=== PATIENT | male | born 1945 | race Caucasian/White ===

== ENCOUNTER → 2016-05-06 | Outpatient (CLI) | payer OTHER ==
--- NOTE | 2016-05-07 10:00 | MR ---
MRI lower extremity, right knee History: Right knee pain. Evaluate for meniscal tear. ICD 10 code M23.205 Comparison: None. Technique: MRI was performed of the right knee using a 3 Nay MRI system. Axial, sagittal, and coron al images were obtained with standard imaging sequences. Findings: General: Moderate suprapatellar joint effusion. Thickened suprapatellar plica. Thin Macias's cyst exte nding craniocaudal 5 cm. Ligaments and Tendons: Anterior cruciate and posterior cruciate ligaments are intact and unremarkable . Medial collateral ligament unremarkable. Minimal edema along the distal pes anserinus. Edema is see n between the iliotibial band and fibular collateral ligament. Mild abnormal signal intensity seen in the proximal fibular collateral ligament. Biceps femoris is unremarkable. Mild abnormal signal inten sity is seen in the popliteus tendon without attenuation. Complex fluid collection is seen posterior to the posterior cruciate ligament with septations indicating the complex ganglion measuring 2 x 1 cm . Menisci and Cartilage: Abnormal signal intensity seen anterior horn and body of the lateral meniscus to the superior articular surface and fraying at the free edge. Cartilage thinning is seen in the pos terior weightbearing portion of the lateral compartment. Undersurface tear posterior horn lateral men iscus at the posterior medial periphery. There is also focal area of truncation of the free edge of t he posterior horn mid aspect. Extensor Mechanism: Cartilage signal abnormality and thinning is seen in the trochlear groove with ne ar full-thickness cartilage loss the mid to inferior trochlear groove. Mild cartilage signal at about is seen in the patella. Quadriceps tendon and patellar tendons unremarkable. Impression: 1. Upper surface tear anterior horn and body of the lateral meniscus and fraying at the free edge. Gr pollo 1 and grade 2 articular cartilage disease lateral compartment. 2. Undersurface tear posterior horn medial meniscus at the posterior medial periphery and focal area of truncation of the free edge. 3. 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 4. Moderate iliotibial band syndrome. Mild tendinopathy proximal fibular collateral ligament and popl iteus tendon. 5. Moderate suprapatellar joint effusion. Complex ganglion posterior to the posterior cruciate ligame nt.
== END ==
LOC: FIMAGING 13:11
PROVIDERS: ATTEND Orthopaedic Surgery
DX: M23.221 Derangement of posterior horn of medial meniscus due to old tear or injury, right knee (principal); M23.241 Derangement of anterior horn of lateral meniscus due to old tear or injury, right knee; M25.461 Effusion, right knee; M71.21 Synovial cyst of popliteal space [Baker], right knee

== ENCOUNTER 2017-08-19 13:45 | Emergency (ER) | payer OTHER ==
--- NOTE | 2017-08-19 14:08 | EDPHY ---
H & P Time Seen by Provider: 08/19/17 14:05 HPI/ROS: CHIEF COMPLAINT: Chest trauma HISTORY OF PRESENT ILLNESS: This is a healthy 71-year-old male who was playing softball today he was struck on the upper right chest by a thrown softball. Patient states he was looking away when the ball slipped from the 1st basement hand when he was throwing it around the bases, and then struck him in the chest. Patient went to his knees. He did not lose consciousness. He reports that he has significant discomfort with a deep breath. He has some discomfort in his right shoulder and some numbness into the right arm. Had no palpitations. No lightheadedness. No dizziness. He was otherwise well prior to the event. REVIEW OF SYSTEMS: Aside from elements discussed in the HPI, a comprehensive 10-point review of systems was reviewed and is negative. PAST MEDICAL HISTORY: GERD, arthritis. Did not take any anticoagulants or aspirin. SOCIAL HISTORY: Nonsmoker. Picture for the softball team. VITAL SIGNS Reviewed by me. O2 sat: 95. GENERAL: Well-developed, well-nourished, resting comfortably, complaints of discomfort if he takes a deep breath. HEENT: Atraumatic. Benign. Neck: supple with no adenopathy. No tenderness to palpation. CHEST: 6 cm circular area of erythema and slight swelling is present just inferior to the right sternocleidomastoid junction. Tender to palpation. No crepitus felt. No Billie crunch. No subcu air palpated. LUNGS: Clear to auscultation bilaterally, no wheezes, rhonchi or rales. CARDIAC: Regular rate and rhythm, no rubs, murmurs or gallops. ABDOMEN: Soft, nontender, nondistended, bowel sounds normal. EXTREMITIES: No trauma. No edema. Range of motion is normal throughout. NEURO: Alert and oriented, grossly nonfocal. SKIN: Warm and dry, no rash. PSYCHIATRIC: Normal mentation, no agitation. Smoking Status: Never smoked Constitutional: Initial Vital Signs Heart Rate 75 08/19/17 13:51 Respiratory Rate 18 08/19/17 13:51 Blood Pressure 179/118 H 08/19/17 13:51 O2 Sat (%) 95 08/19/17 13:51 O2 Delivery Mode Room Air Allergies/Adverse Reactions: No Known Allergies Allergy (Unverified 08/19/17 15:15) Home Medications: Medication Instructions Recorded Celebrex 08/19/17 traMADol [Ultram 50 mg (*)] 50 mg PO Q6 #20 tab 08/19/17 Medical Decision Making - Diagnostics Imaging Results: Impression: No acute abnormality, or substantial change from 05/24/2015. If there is progression of the patient's symptoms, CT imaging could be considered. Findings were discussed with Siobhan Padron MD at 15:00, on 08/19/2017. Dictated By: Brian King MD Imaging: Discussed imaging studies w/ manager call center Radiologist, I viewed and interpreted images myself ED Course/Re-evaluation: 8-year-old male presents after he was struck by a thrown softball on the chest. Patient has localized discomfort. He is complaining also intermittently of pain in his right shoulder, but reports that he has some chronic right shoulder issues. Not hypoxic. Normal palpable pulses in the right upper extremity. Right upper extremity is warm to the touch. No complaints radicular discomfort, numbness or tingling, has brisk capillary refill. No murmur on examination. Chest x-ray demonstrates no rib fractures or pneumothorax. Film was reviewed and discussed with radiologist. On re-examination the patient has had improvement in his discomfort with an ice pack. He looks quite well. I did not believe advanced imaging studies are indicated at this time, however, the patient was given strict precautions. He understands that if he should have worsening pain, numbness or tingling into his arm, weakness, cool sensation to the hand, significant shortness of breath, he should return to the emergency department immediately. Differential Diagnosis: Differential diagnoses for the patient's symptom complex was considered including but not limited to sternoclavicular dislocation, rib fracture, pulmonary contusion, pneumothorax, great vessel injury. - Data Points Medications Given: Discontinued Medications Ketorolac Tromethamine (Toradol) 30 mg IM EDNOW ONE Stop: 08/19/17 15:12 Last Admin: 08/19/17 15:19 Dose: 30 mg Departure - Departure Disposition: Home, Routine, Self-Care Clinical Impression: Anterior chest contusion Condition: Good Instructions: Rib Contusion (ED) Additional Instructions: Mainstay of therapy will be rest for the next 24-48 hours, ice to the area for 20-30 minutes every 3-4 hours, and use of ibuprofen. Do not take Celebrex if you're taking ibuprofen. Ibuprofen 600 mg by mouth every 8 hr with food. You may take tramadol as needed for severe pain especially at night. If you developed worsening chest discomfort, shortness of breath, nausea, vomiting, numbness or tingling in your arms, fainting, or other concerns, please return to emergency department. Referrals: Michelle Iglesias MD [Primary Care Provider] - As per Instructions Prescriptions: traMADol [Ultram 50 mg (*)] 50 mg PO Q6 #20 tab
[2017-08-19] MEDS ORDERED: KETOROLAC 30 MG/1 ML SDV IM ONE (15:11)
[2017-08-19 16:16] VITALS: BP 141/95
== END 2017-08-19 16:14 | disposition home or self-care (01) ==
LOC: CED 13:45
DX: S20.211A Contusion of right front wall of thorax, initial encounter (principal); W21.07XA Struck by softball, initial encounter; Y99.8 Other external cause status; Y93.64 Activity, baseball
CPT/HCPCS: 71046; 96372; 99284; J1885

== ENCOUNTER → 2018-01-26 | Outpatient (CLI) | payer OTHER | LOC: CIMAGING 13:16 | PROVIDERS: ATTEND Family Medicine | DX: R91.1 Solitary pulmonary nodule (principal) | CPT/HCPCS: 71250-PO ==

== ENCOUNTER → 2018-04-15 | Outpatient (CLI) | payer OTHER | LOC: CIMAGING 08:47 | PROVIDERS: ATTEND Internal Medicine Gastroenterology | DX: N20.0 Calculus of kidney (principal); R93.2 Abnormal findings on diagnostic imaging of liver and biliary tract | CPT/HCPCS: 76705-PO ==

== ENCOUNTER → 2018-04-26 | Outpatient (CLI) | payer OTHER ==
[~2018-04-26] MED LIST: GADOBUTROL 10 ML VIAL IVP ONE
== END ==
LOC: FIMAGING 12:10
PROVIDERS: ATTEND Psychiatry & Neurology Neurology
DX: R44.1 Visual hallucinations (principal); R43.9 Unspecified disturbances of smell and taste; R43.0 Anosmia
CPT/HCPCS: 70553; A9585

== ENCOUNTER → 2018-06-20 | Outpatient (CLI) | payer OTHER | LOC: CIMAGING 09:20 | PROVIDERS: ATTEND Family Medicine | DX: R91.1 Solitary pulmonary nodule (principal); M45.4 Ankylosing spondylitis of thoracic region | CPT/HCPCS: 71250-PO ==